=== PATIENT | male | born 1950 | race Caucasian/White ===

== ENCOUNTER 2017-05-09 17:22 | Emergency (ER) | payer MEDICARE, OTHER ==
[~2017-05-09] VITALS: Ht 172.7 cm; Wt 99.8 kg
[2017-05-09] MEDS ORDERED: ONDANSETRON ODT 4 MG TAB.RAPDIS PO ONE (18:30)
[2017-05-09] MEDS ORDERED: HYDROcodone/APAP 10/325 1 TAB TABLET PO ONE (18:30)
[2017-05-09 19:13] VITALS: BP 130/74
[2017-05-09] MEDS ORDERED: HYDR-971 PO (19:24)
--- NOTE | 2017-05-09 19:27 | PHYS DOC ---
General Chief Complaint: UPPER EXTREMITY INJURY Stated Complaint: UPPER EXTREMITY PAIN Time Seen by MD: 18:13 Source: patient Exam Limitations: no limitations Problems: History of Present Illness Initial Comments 66-year-old male comes to the ED complaining of left arm injury. Patient states that he was on a flatbed trailer his car was being towed, upon exiting his car he accidentally stepped off the edge falling to his left lateral elbow and shoulder. He denies head trauma loss of consciousness, denies any injury other than left elbow and shoulder pain. He was seen at [facility] earlier today however there radiology department was down. He states that they advised him he probably broke something and directed him to the emergency department without further treatment. In the ED the patient is able to use his left arm has no numbness tingling weakness or radiating symptoms, describes his pain as 8 out of 10 sharp, worse with movement better with rest. Plain films ordered prior to my seeing the patient Onset: yesterday Severity: moderate Pain/Injury Location: left shoulder, left elbow Method of Injury: fell Modifying Factors: worse with jarring, worse with movement, improves with rest Allergies: Coded Allergies: lisinopril (Verified Allergy, Unknown, 05/09/17) Past Medical History Medical History: other (anxiety, liver cancer (chemotherapy) diabetes) Surgical History: noncontributory Social History Smoker: non-smoker Alcohol: none Drugs: none Review of Systems Constitutional: denies chills, denies diaphoresis, denies fever Respiratory: denies cough, denies shortness of breath Cardiovascular: denies chest pain, denies palpitations Gastrointestinal: denies abdominal pain, denies vomiting Genitourinary: denies frequency, denies hematuria Musculoskeletal: see HPI Skin: see HPI Psychiatric/Neurological: see HPI Physical Exam General Appearance: WD/WN, no apparent distress Neck: non-tender, supple Cardiovascular/Respiratory: normal peripheral pulses, no respiratory distress Back: no CVA tenderness, no vertebral tenderness Shoulder: soft tissue tenderness (tenderness noted at the lateral aspect, deltoid bursal swelling noted with tenderness, pain limited rotator cuff tendon evaluation no complete tears suspected, no palpable bony deformity mild bruising noted at the lateral aspect) Elbow/Forearm: soft tissue tenderness (bruising noted at the lateral aspect of the elbow, no notable swelling no palpable bony deformity range of motion is normal) Wrist: normal inspection, non-tender, no evidence of injury Neurologic/Tendon: normal sensation, normal motor functions, normal tendon functions, responds to pain, no evidence tendon injury Psychiatric: alert, oriented x 3 Skin: warm/dry (bruising of the left arm as above) Orders, Labs, Meds Left elbow and shoulder: No acute osseous abnormality interpreted by me Sling applied Bliss by mouth given. Departure Time of Disposition: 19:25 Disposition: 01 HOME, SELF-CARE Diagnosis: fall, left shoulder and elbow contusions Condition: GOOD Patient Instructions: Contusion, [id number], RICE - Routine Care for Injuries , [id number] Additional Instructions: RICE, see handout. Wear left arm sling as needed for symptom control. [id number] ibuprofen for baseline pain control. Prescription: Bliss 5 mg quantity 20 Take medications with food to avoid GI upset. Increase fluid intake and take [id number] stool softeners to avoid constipation. Follow-up with your doctor on or Tuesday at [facility] for recheck. Be sure to take the CD ROM of your images for their review. Return to ED with new or changing symptoms. ADIEL LOYD DO May 09, 2017 19:27
--- NOTE | 2017-05-10 08:18 | RAD ---
Three-view left shoulder study History: Injury from fall this morning. Left shoulder pain. Findings: No acute fracture or dislocation or osteolytic process is seen. No acute AC joint separation is seen. AC joint appears similar to a chest x-ray dated November 08, 2012.. IMPRESSION: No acute fracture.
--- NOTE | 2017-05-10 08:19 | RAD ---
3 view left elbow study History: Injury from fall this morning. Left elbow pain. Findings: Left elbow joint effusion is seen. This is due to a nondisplaced fracture of the radial head with intra-articular extension. No dislocation or osteolytic process is seen. IMPRESSION: Posttraumatic nondisplaced fracture of the proximal left radial head.
== END 2017-05-09 19:57 | disposition home or self-care (01) ==
LOC: ER 17:22
DX: S40.012A Contusion of left shoulder, initial encounter (principal); S50.02XA Contusion of left elbow, initial encounter; E11.9 Type 2 diabetes mellitus without complications; F41.9 Anxiety disorder, unspecified; Z88.8 Allergy status to other drugs, medicaments and biological substances; W17.89XA Other fall from one level to another, initial encounter; Y93.89 Activity, other specified; Y99.8 Other external cause status; Y92.89 Other specified places as the place of occurrence of the external cause
CPT/HCPCS: 73030; 73080; 99284; Q0162

== ENCOUNTER 2017-07-29 20:42 | Emergency (ER) | payer MEDICARE, OTHER ==
[~2017-07-29] VITALS: Ht 172.7 cm; Wt 125.0 kg
[~2017-07-29 20:42] MED LIST: HYDR-971 PO
--- NOTE | 2017-07-29 20:47 | ED.ADGEN ---
Past History Past Medical History: Anxiety, Cancer, Diabetes, Other Past Surgical History: Other Alcohol Use: None Drug Use: None Adult General Chief Complaint Chief Complaint ".. I had prostate surgery.. and had this tripathi out once and replaced.. but it started leaking around the edge.. it seems to be working fine now..." HPI HPI Patient is a 67 year old male who presents with above hx and complaints of early catheter dysfunction. The Tripathi catheter appears be draining from adequately. Tripathi catheter flushes. Balloon had approximately 15 mL . Urine bag appears to have approximately 500 mL of urine. Patient surgery was on last Tuesday by Dr. Schumacher at [facility]. Pt. had tripathi out, but could not void. The Tripathi was replaced on of this week. Review of Systems Review of Systems Constitutional: Denies fever or chills [] Eyes: Denies change in visual acuity, redness, or eye pain [] HENT: Denies nasal congestion or sore throat [] Respiratory: Denies cough or shortness of breath [] Cardiovascular: No additional information not addressed in HPI [] GI: Denies abdominal pain, nausea, vomiting, bloody stools or diarrhea [] : Complaints of dysuria and hematuria [] Musculoskeletal: Denies back pain or joint pain [] Integument: Denies rash or skin lesions [] Neurologic: Denies headache, focal weakness or sensory changes [] Endocrine: Denies polyuria or polydipsia [] All other systems were reviewed and found to be within normal limits, except as documented in this note. Family History Family History Noncontributory Current Medications Current Medications See nursing for current medications Allergies Allergies Allergies Coded Allergies Type Severity Reaction Last Updated Verified lisinopril Allergy Unknown 05/09/17 Yes Physical Exam Physical Exam Constitutional: no acute distress, non-toxic appearance. [] HENT: Normocephalic, atraumatic, bilateral external ears normal, oropharynx moist, no oral exudates, nose normal. [] Eyes: PERRLA, EOMI, conjunctiva normal, no discharge. [] Neck: Normal range of motion, no tenderness, supple, no stridor. [] Cardiovascular:Heart rate regular rhythm, no murmur [] Lungs & Thorax: Bilateral breath sounds equal at apexes on auscultation [] Abdomen: Bowel sounds normal, soft, no tenderness, no masses, no pulsatile masses. [] Tripathi- appears to be draining adequately Skin: Warm, dry, no erythema, no rash. [] Back: No tenderness, no CVA tenderness. [] Extremities: No tenderness, no cyanosis, no clubbing, ROM intact, no edema. [] Arthritic changes. Neurologic: Alert and oriented X 3, normal motor function, normal sensory function, no focal deficits noted. [] Psychologic: Affect normal, judgement normal, mood normal. [] Current Patient Data Vital Signs Vital Signs Date Time Temp Pulse Resp B/P (MAP) Pulse Ox O2 Delivery O2 Flow Rate FiO2 07/29/17 21:35 98.2 96 18 96 Room Air Lab Results Laboratory Tests Test 07/29/17 21:30 Urine Collection Type U cath Urine Color Straw Urine Clarity Hazy Urine pH 5.5 Urine Specific [place] 1.015 Urine Protein 100 mg/dl (NEG-TRACE) Urine Glucose (UA) >=1000 mg/dL (NEG) Urine Ketones (Stick) Neg mg/dL (NEG) Urine Blood Large (NEG) Urine Nitrite Neg (NEG) Urine Bilirubin Neg (NEG) Urine Urobilinogen Dipstick 0.2 mg/dL (0.2 mg/dL) Urine Leukocyte Esterase Trace (NEG) Urine RBC >40 /HPF (0-2) Urine WBC 5-10 /HPF (0-4) Urine Squamous Epithelial Cells None /LPF Urine Bacteria Few /HPF (0-FEW) EKG EKG [] Radiology/Procedures Radiology/Procedures [] Course & Med Decision Making Course & Med Decision Making Pertinent Labs and Imaging studies reviewed. (See chart for details). Patient declined replacement of Tripathi. Urine bag was replaced. Patient keep follow-up with urology. Patient return if any concerns. Patient push fluids. 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 post surgery[] Dragon Disclaimer Dragon Disclaimer This electronic medical record was generated, in whole or in part, using a voice recognition dictation system. RAVEN GROVER MD July 29, 2017 20:47
[2017-07-29 21:35] VITALS: BP 137/70
[2017-07-29 22:11] LABS: BILIRUBIN,URINE NEG (NEG); CLARITY,URINE HAZY; COLOR,URINE STRAW; GLUCOSE,URINE >=1000 mg/dL (NEG)
[2017-07-29 22:12] LABS: BACTERIA,URINE FEW /HPF (0-FEW); NITRITE,URINE NEG (NEG); RBC,URINE >40 /HPF (0-2); UROBILINOGEN,URINE 0.2 mg/dL (0.2 mg/dL)
== END 2017-07-29 22:54 | disposition home or self-care (01) ==
LOC: ER 20:42
DX: T83.098A Other mechanical complication of other urinary catheter, initial encounter (principal); N42.9 Disorder of prostate, unspecified; E11.9 Type 2 diabetes mellitus without complications; F41.9 Anxiety disorder, unspecified; Z88.8 Allergy status to other drugs, medicaments and biological substances
CPT/HCPCS: 81001; 87086; 99284

== ENCOUNTER 2017-08-01 18:19 | Emergency (ER) | payer MEDICARE, OTHER ==
[~2017-08-01] VITALS: Ht 172.7 cm; Wt 125.0 kg
--- NOTE | 2017-08-01 18:21 | ED.ADGEN ---
Past History Past Medical History: Anxiety, Cancer, Diabetes, Other Past Surgical History: Other Alcohol Use: None Drug Use: None Adult General Chief Complaint Chief Complaint " I back here again....the oconnor thing blocked up again..." HPI HPI Patient is a 67 year old male who presents with above hx and complaints obstructed tripathi.. Pt. seen post surgery and had cath flush and replace. Seen yesterday and tripathi flush. Pt urine has cleared markedly. Pt. however again distended bladder and urine coming out around the cath. Pt. to be seen Wed. to have the cath removed. Discussed options of tx.. Pt. agrees to remove cath. Will see if he is able to void post removal. If able to void post removal will leave it out. Review of Systems Review of Systems Constitutional: Denies fever or chills [] Eyes: Denies change in visual acuity, redness, or eye pain [] HENT: Denies nasal congestion or sore throat [] Respiratory: Denies cough or shortness of breath [] Cardiovascular: No additional information not addressed in HPI [] GI: Denies abdominal pain, nausea, vomiting, bloody stools or diarrhea [] : Complaints of dysuria or hematuria [] Musculoskeletal: Denies back pain or joint pain [] Integument: Denies rash or skin lesions [] Neurologic: Denies headache, focal weakness or sensory changes [] Endocrine: Denies polyuria or polydipsia [] All other systems were reviewed and found to be within normal limits, except as documented in this note. Family History Family History Non-contributory Current Medications Current Medications Current Medications Medications (Trade) Dose Ordered Sig/Camilo Start Time Stop Time Status Last Admin Dose Admin Lidocaine HCl (Xylocaine 2% Topical 30gm Tube) 1 kamala 1X ONCE 08/01/17 20:00 08/01/17 20:01 DC 08/01/17 20:10 1 KAMALA Lorazepam (Ativan) 1 mg 1X ONCE 08/01/17 20:00 08/01/17 20:01 DC 08/01/17 20:05 1 MG Morphine Sulfate (Morphine 10mg Syringe) 10 mg 1X ONCE 08/01/17 18:45 08/01/17 18:46 DC 08/01/17 18:52 10 MG Allergies Allergies Allergies Coded Allergies Type Severity Reaction Last Updated Verified lisinopril Allergy Unknown 05/09/17 Yes Physical Exam Physical Exam Constitutional: Moderately acute distress, non-toxic appearance. [] HENT: Normocephalic, atraumatic, bilateral external ears normal, oropharynx moist, no oral exudates, nose normal. [] Eyes: PERRLA, EOMI, conjunctiva normal, no discharge. [] Neck: Normal range of motion, no tenderness, supple, no stridor. [] Cardiovascular:Heart rate regular rhythm, no murmur [] Lungs & Thorax: Bilateral breath sounds clear to auscultation [] Abdomen: Bowel sounds normal, soft, bladder tenderness, no masses, no pulsatile masses. [] Obese. Bladder distended. Urine coming around the cath. Skin: Warm, dry, no erythema, no rash. [] Back: No tenderness, no CVA tenderness. [] Extremities: No tenderness, no cyanosis, no clubbing, ROM intact, no edema. [] Neurologic: Alert and oriented X 3, normal motor function, normal sensory function, no focal deficits noted. [] Psychologic: Affect anxious, judgement normal, mood normal. [] Current Patient Data Vital Signs Vital Signs Date Time Temp Pulse Resp B/P (MAP) Pulse Ox O2 Delivery O2 Flow Rate FiO2 08/01/17 21:00 82 20 138/88 (105) 98 Room Air 08/01/17 18:20 98.5 EKG EKG [] Radiology/Procedures Radiology/Procedures [] Course & Med Decision Making Course & Med Decision Making Pertinent Labs and Imaging studies reviewed. (See chart for details). Keep follow up . Return if any concerns. [] Final Impression Final Impression 1. Dysfunctional Tripathi[] Dragon Disclaimer Dragon Disclaimer This electronic medical record was generated, in whole or in part, using a voice recognition dictation system. RAVEN GROVER MD August 01, 2017 18:21
[2017-08-01] MEDS ORDERED: MORPHINE SULFATE 10 MG/ML SYRINGE. SQ ONE (18:45)
[2017-08-01] MEDS ORDERED: LIDOCAINE 2% TOPICAL JELLY 30GM TUBE. TP ONE ×2 (19:42→20:00)
[2017-08-01] MEDS ORDERED: LORazepam 1 MG TABLET ONE (19:43)
[2017-08-01] MEDS ORDERED: LORazepam 1 MG TABLET PO ONE (20:00)
[2017-08-01 21:00] VITALS: BP 138/88
== END 2017-08-01 21:10 | disposition home or self-care (01) ==
LOC: ER 18:19
DX: T83.038A Leakage of other urinary catheter, initial encounter (principal); E11.9 Type 2 diabetes mellitus without complications; F41.9 Anxiety disorder, unspecified; Z88.8 Allergy status to other drugs, medicaments and biological substances
CPT/HCPCS: 51702; 96372; 99284; J2270